=== PATIENT | female | born 1935 ===

== ENCOUNTER 2018-04-04 14:03 | Outpatient (CLI) | payer OTHER ==
[~2018-04-04 14:03] MED LIST: CETIRIZINE HCL10 MG PO; HYDROCHLOROTHIA25 MG PO; JANUMET 50-501 UDTAB PO; METOCLOPRAMIDE H5 MG PO; NEURIN; OMEPRAZOLE20 MG PO; PLAVIX75 MG PO; RANITIDINE HCL150 MG PO; SIMVASTATIN20 MG PO; SINGULAIR10 MG PO
[2018-04-05] MEDS ORDERED: IRBESARTAN300 MG (17:25)
[2018-04-05] MEDS ORDERED: METFORMIN HCL850 MG (17:25)
[2018-04-05] MEDS ORDERED: GLIMEPIRIDE2 MG (17:25)
== END 2018-04-04 14:10 | disposition home or self-care (01) ==
LOC: LAB 14:03
DX: E55.9 Vitamin D deficiency, unspecified (principal); M85.88 Other specified disorders of bone density and structure, other site; E21.3 Hyperparathyroidism, unspecified; M81.8 Other osteoporosis without current pathological fracture; E56.1 Deficiency of vitamin K; E88.89 Other specified metabolic disorders; E83.42 Hypomagnesemia

== ENCOUNTER 2018-04-05 16:39 | Emergency (ER) | payer OTHER ==
[~2018-04-05] VITALS: Ht 121.9 cm; Wt 65.8 kg
[2018-04-05] MEDS ORDERED: GLIMEPIRIDE2 MG (17:25)
[2018-04-05] MEDS ORDERED: IRBESARTAN300 MG (17:25)
[2018-04-05] MEDS ORDERED: METFORMIN HCL850 MG (17:25)
== END 2018-04-05 20:05 | disposition home or self-care (01) ==
LOC: ER 16:39
DX: G89.11 Acute pain due to trauma (principal); M79.641 Pain in right hand